=== PATIENT | male | born 1970 | race Caucasian/White ===

== ENCOUNTER → 2018-10-19 18:00 | Outpatient (CLI) | payer OTHER, SELFPAY ==
--- NOTE | 2018-10-19 18:05 | DI.MRI.S_ITS ---
PROCEDURE: MR LUMBAR SPINE WO CON INDICATIONS: LEFGT LEG PAIN AND NUMBNESS TECHNIQUE: Noncontrast sagittal T1 spin echo and T2 fast echo, sagittal STIR, axial T1 and T2 fast spin echo through the lumbar spine. In cases with scoliosis, additional coronal T2 fast spin echo may be performed. COMPARISON: [facility], CT, ABDOMEN/PELVIS WITH CONTRAST, 02/01/2011, 9:01. [facility], RG, MRI L-SPINE W/O CONTRAST, 06/30/2004, 9:25. FINDINGS: Image quality: Excellent. Alignment and Curvature: There is normal bony alignment. Bone Marrow: Marrow is of normal overall signal. No acute vertebral body compression fractures. Spinal Cord: Conus medullaris terminates at the T12-L1 level. Visualized cord demonstrates normal signal and size. Paraspinous Soft Tissues: No paravertebral masses. T12-L1: No canal stenosis or foraminal stenosis. Facet joints are unremarkable. L1-L2: No canal stenosis or foraminal stenosis. Mild facet hypertrophy. L2-L3: No canal stenosis or foraminal stenosis. Mild facet hypertrophy. L3-L4: There is a free disc fragment which has migrated slightly superiorly in the right lateral recess. It measures 1.2 x 0.5 x 1.1 cm. It may potentially irritate the right L3 nerve root as it begins to enter the foramen. It has minimal mass effect on the thecal sac. There is no central canal stenosis. There is also a small disc fragment which has migrated inferiorly in the left lateral recess. It measures 1.0 x 0.8 x 0.8 cm. It obliterates the left L4 nerve root in the left lateral recess. Left foramen is patent. Facet hypertrophy. L4-L5: Bilateral facet hypertrophy. No disc protrusion. Borderline canal stenosis. Foramina are widely patent. L5-S1: No canal stenosis or foraminal stenosis. Mild facet hypertrophy. IMPRESSION: 1. There are 2 separate free disc fragments which appear to originate from the L3-L4 level. In the right lateral recess, above the L3-L4 level, is a 1.2 x 0.5 x 1.1 cm fragment which may potentially irritate the right L3 nerve root as it enters the foramen. In the left lateral recess, just below the L3-L4 level, is a 1.0 x 0.8 x 0.8 cm free fragment which obliterates the left L4 nerve root in the left lateral recess. 2. Borderline canal stenosis at L4-L5. 3. Multilevel facet hypertrophy. Dictated by: Cornelius Meek M.D. on 10/22/2018 at 8:29 Approved by: Cornelius Meek M.D. on 10/22/2018 at 8:43
== END ==
PROVIDERS: Visit Provider Family Medicine
DX: M79.605 Pain in left leg (principal); R20.0 Anesthesia of skin
CPT/HCPCS: 72148

== ENCOUNTER → 2020-07-24 09:36 | Outpatient (CLI) | payer OTHER, SELFPAY ==
--- NOTE | 2020-07-24 09:37 | DI.MRI.S_ITS ---
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 COMPARISON: [facility], CT, ABDOMEN/PELVIS WITH CONTRAST, 02/01/2011, 9:01. [facility], MR, MR LUMBAR SPINE WO CON, 10/19/2018, 18:14. FINDINGS: Image quality: Excellent. Alignment and Curvature: 5 lumbar type vertebral bodies are present by CT. There is mild grade 1 retrolisthesis of L5 on S1. Bone Marrow: Marrow is of normal overall signal. No acute vertebral body compression fractures. There is mild reactive signal within the endplates adjacent to the T12-L1, L1-L2, L2-L3, L3-L4, L4-L5, and L5-S1 intervertebral discs. Spinal Cord: Conus medullaris terminates at the lower L1 level. Visualized cord demonstrates normal signal and size. Paraspinous Soft Tissues: No paravertebral masses. T12-L1: Moderate disc height loss and desiccation. Mild diffuse disc bulge. Mild canal stenosis. Mild bilateral foraminal stenosis. No change. L1-L2: Mild facet and ligamentum flavum hypertrophy. Mild diffuse disc bulge. Mild canal stenosis. No foraminal stenosis. L2-L3: Mild disc desiccation and diffuse disc bulge. Mild disc height loss. Mild facet and ligamentum flavum hypertrophy. Mild epidural lipomatosis. Mild canal stenosis. Mild bilateral foraminal stenosis. No change. L3-L4: Moderate disc height loss and desiccation. Mild diffuse disc bulge. Decreased, small right posterolateral disc extrusion. Nearly resolved left posterolateral disc extrusion. Mild facet and ligamentum flavum hypertrophy. Mild canal stenosis. Mild bilateral foraminal stenosis. L4-L5: Moderate disc height loss and desiccation. Mild diffuse disc bulge. Mild facet and ligamentum flavum hypertrophy. Mild epidural lipomatosis. Mild canal stenosis. Mild bilateral foraminal stenosis. No change. L5-S1: Moderate disc height loss and desiccation. Mild diffuse disc bulge. Mild bilateral facet hypertrophy. Mild canal stenosis. Mild bilateral foraminal stenosis. IMPRESSION: 1. Decreased/resolved disc extrusions at L3-L4 as described above. No evidence of residual neural impingement. 2. Multilevel degenerative disc and facet disease, as well as ligamentum flavum hypertrophy and epidural lipomatosis. 3. Mild multilevel canal and foraminal stenoses. Dictated by: Bridgette Cameron M.D. on 07/24/2020 at 11:55 Approved by: Bridgette Cameron M.D. on 07/24/2020 at 12:04
== END ==
PROVIDERS: Referring Provider Nurse Practitioner Family; Visit Provider Nurse Practitioner Family
DX: G83.10 Monoplegia of lower limb affecting unspecified side (principal); M51.26 Other intervertebral disc displacement, lumbar region; M47.816 Spondylosis without myelopathy or radiculopathy, lumbar region
CPT/HCPCS: 72148